=== PATIENT | female | born 1995 | race Caucasian/White ===

== ENCOUNTER 2020-07-10 03:38 | Emergency (ER) | payer OTHER ==
[~2020-07-10] VITALS: Ht 167.6 cm; Wt 52.2 kg
[2020-07-10] MEDS ORDERED: PERCOCET 5-3251 EACH PO (04:15)
[2020-07-10 04:58] VITALS: BP 123/68
== END 2020-07-10 04:59 | disposition home or self-care (01) ==
LOC: M.ERS 03:38
DX: S42.292A Other displaced fracture of upper end of left humerus, initial encounter for closed fracture (principal); W01.0XXA Fall on same level from slipping, tripping and stumbling without subsequent striking against object, initial encounter; Y93.89 Activity, other specified; Y92.89 Other specified places as the place of occurrence of the external cause; Y99.8 Other external cause status